=== PATIENT | male | born 1955 | race American Indian/Alaskan Native ===

== ENCOUNTER 2021-07-13 10:22 | Emergency (ER) | payer OTHER, MEDICARE ==
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
[2021-07-13] MEDS ORDERED: cloNIDine 0.2 MG TAB PO ONE (12:30)
--- NOTE | 2021-07-13 12:30 | XRay Report ---
XR wrist 3+V LT INDICATION / CLINICAL INFORMATION: injury. COMPARISON: None available. FINDINGS: BONES/JOINT(S): No acute fracture or subluxation. 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 SOFT TISSUES: No significant abnormality. ADDITIONAL FINDINGS: None. Signer Name: Francis Guzman MD Signed: 07/13/2021 12:26 PM Workstation Name: [id number]
[2021-07-13 14:01] VITALS: BP 205/115
== END 2021-07-13 14:13 | disposition home or self-care (01) ==
LOC: ED 10:22
DX: S63.502A Unspecified sprain of left wrist, initial encounter (principal); I10 Essential (primary) hypertension; V49.9XXA Car occupant (driver) (passenger) injured in unspecified traffic accident, initial encounter; W22.10XA Striking against or struck by unspecified automobile airbag, initial encounter; Y93.89 Activity, other specified; Y92.89 Other specified places as the place of occurrence of the external cause; Y99.8 Other external cause status
CPT/HCPCS: 99283